=== PATIENT | female | born 1935 | race Caucasian/White ===

== ENCOUNTER 2022-07-07 20:51 | Emergency (ER) | payer MEDICARE ==
[2022-07-07 21:48] LABS: #Basophils 0.1 thou/uL (0.0-0.2); #Eosinphils 0.2 thou/uL (0.0-0.7); #Lymphocytes 2.9 thou/uL (1.20-3.40); #Monocytes 0.7 thou/uL (0.11-0.59); #Neutrophils 6.6 thou/uL (1.40-6.50); %Basophils 0.8 % (0.0-1.0); %Eosinophils 1.4 % (0.0-10.0); %Lymphocytes 27.8 % (21.0-51.0); %Monocytes 6.4 % (0.0-10.0); %Neutrophils 63.5 % (42.0-75.0); Hemoglobin 9.7 g/dL (12.0-16.0); Mean Corpuscular HGB CONC 31.1 g/dL (32.0-36.0); Mean Corpuscular Hemoglobin 26.4 pg (27.0-31.0); Mean Corpuscular Volume 84.9 fl (78.0-98.0); Platelet Count 291 10x3/uL (130-400); RBC Distribution Width 16.3 % (11.5-14.5); Red Blood Cell (RBC) Count 3.67 mill/uL (4.20-5.40); White Blood Cell (WBC) Count 10.4 10x3/uL (4.8-10.8)
[2022-07-07] MEDS ORDERED: Furosemide 20 MG/2 ML VIAL ONE (21:58)
[2022-07-07] MEDS ORDERED: Ipratropium/Albuterol 3 ML NEB ONE (21:58)
[2022-07-07 22:08] LABS: ALT (SGPT) 13 U/L (8-55); AST (SGOT) 20 U/L (5-34); Albumin 3.3 g/dL (3.4-4.8); Alkaline Phosphatase 119 U/L (40-110); Anion Gap 18 mmol/L (10-20); BUN (Urea Nitrogen) 35 mg/dL (9.8-20.1); Bilirubin, Total 1.3 mg/dL (0.2-1.2); Calc. Creatinine Clearance 0 mL/min (70-130); Carbon Dioxide 27 mmol/L (23-31); Chloride 101 mmol/L (98-107); Estimated GFR 39; Globulin 3.5 g/dL (2.4-3.5); Glucose 100 mg/dL (83-110); Potassium 3.9 mmol/L (3.5-5.1); Protein, Total 6.8 g/dL (5.8-8.1); Sodium 142 mmol/L (136-145)
[2022-07-07] MEDS ORDERED: cefTRIAXone (ROCEPHIN) 1 GM VIAL ONE (22:24)
[2022-07-07] MEDS ORDERED: Sodium Chloride 0.9% 100 ML ONE (22:24)
[2022-07-07 22:26] LABS: CKMB 0.7 ng/mL (0-6.6)
[2022-07-07] MEDS ORDERED: GUAIFENESIN SF SOLN 200 MG/10 ML UDCUP ONE (23:03)
[2022-07-07] MEDS ORDERED: Guaifenesin DM 100-10/5 ML UDCUP ONE (23:04)
[2022-07-08 00:01] LABS: SARS-CoV-2 NAA Rapid Test Not Detected (NotDetected)
[2022-07-08] MEDS ORDERED: Pantoprazole 40 MG VIAL ONE (00:23)
[2022-07-08] MEDS ORDERED: metroNIDAZOLE 500 MG/100 ML BAG ONE ×2 (00:23→08:28)
[2022-07-08] MEDS ORDERED: Benzonatate 100 MG CAP ONE ×3 (00:23→08:28)
[2022-07-08 01:28] LABS: Bilirubin Negative (Negative); Blood, Urine Trace (Negative); Clarity Clear (Clear); Glucose, Urine (Dipstick) 250 mg/dL (Negative); Ketone, Urine Negative (Negative); Leukocyte Moderate (Negative); Nitrite Negative (Negative); Protein, Urine (Dipstick) Negative (Neg-Trace)
[2022-07-08] MEDS ORDERED: CO Q-10 CAPSULE 50 MG PO SCH ×3 (01:30→21:00)
[2022-07-08] MEDS ORDERED: Magnesium Oxide 400 MG TAB PO SCH ×2 (01:30→21:00)
[2022-07-08] MEDS ORDERED: Atorvastatin Calcium 40 MG TAB PO SCH ×2 (01:30→21:00)
[2022-07-08 01:34] LABS: Specific Gravity, Urine 1.008 (1.002-1.036)
[2022-07-08 01:35] LABS: Bacteria/HPF None Seen HPF (None Seen); Squamous Epithelial 0-3 HPF (0-3)
[2022-07-08 01:42] LABS: CKMB 0.8 ng/mL (0-6.6)
[2022-07-08 06:51] LABS: Troponin I 0.056 ng/mL (< 0.028)
[2022-07-08 07:59] LABS: ALT (SGPT) 12 U/L (8-55); AST (SGOT) 13 U/L (5-34); Albumin 3.2 g/dL (3.4-4.8); Alkaline Phosphatase 106 U/L (40-110); Anion Gap 18 mmol/L (10-20); BUN (Urea Nitrogen) 33 mg/dL (9.8-20.1); Bilirubin, Total 0.9 mg/dL (0.2-1.2); Calc. Creatinine Clearance 0 mL/min (70-130); Calcium 8.6 mg/dL (7.8-10.44); Carbon Dioxide 25 mmol/L (23-31); Chloride 103 mmol/L (98-107); Estimated GFR 45; Globulin 3.1 g/dL (2.4-3.5); Glucose 70 mg/dL (83-110); Potassium 3.6 mmol/L (3.5-5.1); Protein, Total 6.3 g/dL (5.8-8.1); Sodium 142 mmol/L (136-145)
[2022-07-08] MEDS ORDERED: Potassium Chloride 20 MEQ TAB PO SCH (08:00)
[2022-07-08 08:01] LABS: #Basophils 0.1 thou/uL (0.0-0.2); #Eosinphils 0.1 thou/uL (0.0-0.7); #Lymphocytes 1.8 thou/uL (1.20-3.40); #Monocytes 0.8 thou/uL (0.11-0.59); #Neutrophils 5.8 thou/uL (1.40-6.50); %Basophils 0.6 % (0.0-1.0); %Eosinophils 1.5 % (0.0-10.0); %Lymphocytes 21.1 % (21.0-51.0); %Neutrophils 67.8 % (42.0-75.0); Hemoglobin 8.5 g/dL (12.0-16.0); Mean Corpuscular HGB CONC 31.2 g/dL (32.0-36.0); Mean Corpuscular Hemoglobin 25.8 pg (27.0-31.0); Mean Corpuscular Volume 82.9 fl (78.0-98.0); Mean Platelet Volume 6.8 fL (7.4-10.4); Platelet Count 268 10x3/uL (130-400); RBC Distribution Width 15.7 % (11.5-14.5); Red Blood Cell (RBC) Count 3.28 mill/uL (4.20-5.40); White Blood Cell (WBC) Count 8.6 10x3/uL (4.8-10.8)
[2022-07-08] MEDS ORDERED: Clopidogrel Bisulfate 75 MG TAB ONE (08:29)
[2022-07-08] MEDS ORDERED: Furosemide 40 MG TAB ONE (08:29)
[2022-07-08] MEDS ORDERED: Potassium Chloride 20 MEQ TAB ONE (08:30)
[2022-07-08] MEDS ORDERED: Furosemide 40 MG TAB PO SCH (09:00)
[2022-07-08] MEDS ORDERED: Clopidogrel Bisulfate 75 MG TAB PO SCH (09:00)
[2022-07-08] MEDS ORDERED: Empagliflozin 10 MG TAB PO SCH (09:00)
[2022-07-08] MEDS ORDERED: INSULIN DEGLUDEC SC PRN (09:00)
== END 2022-07-08 09:55 | disposition short-term general hospital (02) ==
LOC: NAV ERS 20:51
DX: J18.1 Lobar pneumonia, unspecified organism (principal); I13.0 Hypertensive heart and chronic kidney disease with heart failure and stage 1 through stage 4 chronic kidney disease, or unspecified chronic kidney disease; E11.22 Type 2 diabetes mellitus with diabetic chronic kidney disease; D63.8 Anemia in other chronic diseases classified elsewhere; N18.9 Chronic kidney disease, unspecified; I50.9 Heart failure, unspecified; R77.8 Other specified abnormalities of plasma proteins; E78.00 Pure hypercholesterolemia, unspecified; Z20.822 Contact with and (suspected) exposure to COVID-19; Z79.899 Other long term (current) drug therapy; Z79.02 Long term (current) use of antithrombotics/antiplatelets
CPT/HCPCS: 36415; 36416; 71045; 80053; 81003; 81015; 82553; 83605; 83880; 84443; 84484; 85025; 87040; 87070; 87077; 87205; 93005; 94640; 94760; 96365; 96366; 96367; 96375; C9113; J0696; J1940; J3490; J7620; U0002